=== PATIENT | male | born 1980 | race Caucasian/White ===

== ENCOUNTER 2016-04-30 00:58 | Outpatient (CLI) | payer SELFPAY | END 2016-04-30 00:59 | disposition critical access hospital (66) | DX: R11.2 Nausea with vomiting, unspecified (principal) | CPT/HCPCS: A0425; A0429 ==

== ENCOUNTER 2016-04-30 01:15 | Emergency (ER) | payer SELFPAY ==
[2016-04-30] MEDS ORDERED: ONDANSETRON 4 MG/2 ML VIAL ONE (03:14)
[2016-04-30] MEDS: SODIUM CHLORIDE 0.9% 1,000 ML IV STA (03:26)
[2016-04-30] MEDS: ONDANSETRON 4 MG/2 ML VIAL IVP STA (03:26)
[2016-04-30] MEDS ORDERED: POTASSIUM BICARB 25 MEQ TABLET PO ONE (04:50)
[2016-04-30] MEDS: POTASSIUM BICARB 25 MEQ TABLET PO STA (04:54)
== END 2016-04-30 04:55 | disposition home or self-care (01) ==
DX: K52.9 Noninfective gastroenteritis and colitis, unspecified (principal)
CPT/HCPCS: 36415; 80053; 83690; 85025; 96374; 99283; A9270